=== PATIENT | male | born 1945 | race Caucasian/White ===

== ENCOUNTER 2021-03-09 13:16 | Emergency (ER) | payer OTHER, MEDICARE ==
[~2021-03-09] VITALS: Ht 167.6 cm; Wt 79.5 kg
[~2021-03-09 13:16] MED LIST: ALBU8.5H8 IH; ALLO100T25 PO; AMLO10TA13 PO; ASPI-611 PO; ATOR-2 PO; CALC667T6 PO; CARV6.253 PO; CHOL100025 PO; CLON0.2T PO; DILT240C94 PO; FURO80TA3 PO; IPRA3AMP9 NEB; LIDO700A32 TOP; PATI8.4P PO; TIOT4MIS3 PEG; TRAZ-256 PO; VIT1TABL50 PO; [UNRECOGNIZED DRUG - CODE] PO
[2021-03-09 14:26] LABS: BASOPHILS # (AUTO) 0.1 X10'3 (0-0.2); BASOPHILS % (AUTO) 0.5 % (0-1); EOSINOPHILS # (AUTO) 0.1 X10'3 (0-0.9); EOSINOPHILS % (AUTO) 0.6 % (0-6); HEMATOCRIT 36.4 % (42.0-52.0); HEMOGLOBIN 11.8 g/dl (14.0-17.9); LYMPHOCYTES # (AUTO) 0.8 X10'3 (1.1-4.8); LYMPHOCYTES % (AUTO) 4.9 % (21-51); MEAN CORPUSCULAR HEMOGLOBIN 31.1 PG (27.0-31.0); MEAN CORPUSCULAR HGB CONC 32.4 g/dL (33.0-36.5); MEAN CORPUSCULAR VOLUME 96.1 FL (78-98); MEAN PLATELET VOLUME 8.2 FL (7.4-10.4); MONOCYTES # (AUTO) 1.8 X10'3 (0-0.9); MONOCYTES % (AUTO) 11.2 % (2-12); NEUTROPHILS # (AUTO) 13.1 X10'3 (1.8-7.7); NEUTROPHILS % (AUTO) 82.8 % (42-75); PLATELET COUNT 210 X10'3 (140-440); RED BLOOD COUNT 3.79 X10'6 (4.70-6.10); RED CELL DISTRIBUTION WIDTH 16.2 % (11.5-14.5); WHITE BLOOD COUNT 15.9 X10'3 (4.5-11.0)
[2021-03-09 14:36] LABS: PARTIAL THROMBOPLASTIN TIME 24 SECONDS (22-32)
[2021-03-09 14:43] LABS: ETHANOL < 0.010 GM/DL (0.0-0.010); MAGNESIUM 1.9 MG/DL (1.5-2.4)
[2021-03-09] MEDS ORDERED: HYDROcodone/acetaminophen 5mg/325mg tablet PO ONE (14:50)
[2021-03-09] MEDS ORDERED: ondansetron/PF 4mg/2ml inj IV ONE (16:20)
[2021-03-09] MEDS ORDERED: morphine 4 MG/ML inj SYRINge IV ONE (16:20)
--- NOTE | 2021-03-09 17:31 | NUR ---
called report to [facility] spoke to JYOTHI Rosales
[2021-03-09 17:32] VITALS: BP 200/96
== END 2021-03-09 22:26 | disposition short-term general hospital (02) ==
LOC: ER 13:17
DX: S22.21XA Fracture of manubrium, initial encounter for closed fracture (principal); S22.080A Wedge compression fracture of T11-T12 vertebra, initial encounter for closed fracture; R55 Syncope and collapse; M54.5 Low back pain; I50.9 Heart failure, unspecified; J44.9 Chronic obstructive pulmonary disease, unspecified; N18.9 Chronic kidney disease, unspecified; F17.200 Nicotine dependence, unspecified, uncomplicated; Z72.89 Other problems related to lifestyle; Z79.2 Long term (current) use of antibiotics; Z79.82 Long term (current) use of aspirin; Z79.899 Other long term (current) drug therapy; V87.7XXA Person injured in collision between other specified motor vehicles (traffic), initial encounter; Y93.89 Activity, other specified; Y92.89 Other specified places as the place of occurrence of the external cause; Y99.8 Other external cause status
CPT/HCPCS: 36415; 70450; 71045; 71250; 72100; 72125; 72170; 74176; 80320; 82948; 83735; 83880; 84484; 85025; 85610; 85730; 93005; 96374; 96375; 99285; J2270; J2405

== ENCOUNTER 2021-06-29 08:07 | Day surgery (SDC) | payer MEDICARE, OTHER ==
[~2021-06-29] VITALS: Ht 177.8 cm; Wt 77.8 kg
[~2021-06-29 08:07] MED LIST changes: +ALBU8.5H17 IH; -ALBU8.5H8 IH; -AMLO10TA13 PO; -IPRA3AMP9 NEB; +NIFE30TA95 PO; -[UNRECOGNIZED DRUG - CODE] PO
[2021-06-29] MEDS ORDERED: normal saline 1000ml 1,000 ML IV PRN (08:40)
[2021-06-29 08:49] VITALS: BP 160/70
[2021-06-29 09:21] LABS: BASOPHILS # (AUTO) 0.1 X10'3 (0-0.2); BASOPHILS % (AUTO) 1.3 % (0-1); EOSINOPHILS # (AUTO) 0.3 X10'3 (0-0.9); EOSINOPHILS % (AUTO) 3.7 % (0-6); HEMATOCRIT 29.6 % (42.0-52.0); HEMOGLOBIN 9.6 g/dl (14.0-17.9); LYMPHOCYTES # (AUTO) 1.2 X10'3 (1.1-4.8); LYMPHOCYTES % (AUTO) 16.5 % (21-51); MEAN CORPUSCULAR HEMOGLOBIN 30.8 PG (27.0-31.0); MEAN CORPUSCULAR HGB CONC 32.3 g/dL (33.0-36.5); MEAN CORPUSCULAR VOLUME 95.4 FL (78-98); MEAN PLATELET VOLUME 7.7 FL (7.4-10.4); MONOCYTES # (AUTO) 0.9 X10'3 (0-0.9); MONOCYTES % (AUTO) 12.6 % (2-12); NEUTROPHILS # (AUTO) 4.7 X10'3 (1.8-7.7); NEUTROPHILS % (AUTO) 65.9 % (42-75); PLATELET COUNT 232 X10'3 (140-440); RED BLOOD COUNT 3.11 X10'6 (4.70-6.10); RED CELL DISTRIBUTION WIDTH 18.1 % (11.5-14.5); WHITE BLOOD COUNT 7.2 X10'3 (4.5-11.0)
[2021-06-29 09:26] LABS: ALBUMIN 2.4 G/DL (3.4-5.0); ANION GAP 8 (8-16); BLOOD UREA NITROGEN 18 MG/DL (7-18); BUN/CREATININE RATIO 3.2 (5.4-32.0); CALCIUM 8.8 MG/DL (8.5-10.1); CHLORIDE 99 MMOL/L (99-107); GLUCOSE 85 MG/DL (70-104); POTASSIUM 4.8 MMOL/L (3.5-5.1); SODIUM 139 MMOL/L (135-145); TOTAL CARBON DIOXIDE 32.1 MMOL/L (24-32); eGFR 10 ML/MIN
[2021-06-29] MEDS ORDERED: LIDOcaine 1%/PF 5ML 10 MG/ML VIAL ONE (10:52)
[2021-06-29] MEDS ORDERED: iohexol 300mg/ml 100ml inj. ONE (10:52)
[2021-06-29] MEDS ORDERED: midazolam 1 mg/ML 2ml injection ONE ×2 (11:06→11:22)
[2021-06-29] MEDS ORDERED: heparin 1,000 UNITS/NS 500ml 500 ML ONE (11:08)
[2021-06-29] MEDS ORDERED: fentaNYL/PF 50MCG/1 ML 2ML syringe ONE (11:09)
[2021-06-29 12:15] VITALS: BP 143/65
[2021-06-29 12:45] VITALS: BP 120/70
== END 2021-06-29 13:20 | disposition home or self-care (01) ==
LOC: SSTAY O 08:07
PROVIDERS: ATTEND Radiology Diagnostic Radiology
DX: T82.858A Stenosis of other vascular prosthetic devices, implants and grafts, initial encounter (principal); I12.0 Hypertensive chronic kidney disease with stage 5 chronic kidney disease or end stage renal disease; N18.6 End stage renal disease; M10.9 Gout, unspecified; Z79.899 Other long term (current) drug therapy; Z79.82 Long term (current) use of aspirin; Z79.01 Long term (current) use of anticoagulants; Y83.2 Surgical operation with anastomosis, bypass or graft as the cause of abnormal reaction of the patient, or of later complication, without mention of misadventure at the time of the procedure; Y92.89 Other specified places as the place of occurrence of the external cause
CPT/HCPCS: 36415; 36901; 36907; 80048; 85025; 85610; 99152; 99153; C1725; C1769; C1894; J1644; J2250; J3010; Q9967

== ENCOUNTER 2022-10-24 06:47 | Day surgery (SDC) | payer OTHER ==
[~2022-10-24] VITALS: Ht 177.8 cm; Wt 64.6 kg
[~2022-10-24 06:47] MED LIST changes: -CHOL100025 PO; -LIDO700A32 TOP; -NIFE30TA95 PO; -TIOT4MIS3 PEG; -TRAZ-256 PO
[2022-10-24] MEDS ORDERED: normal saline 1000ml 1,000 ML IV PRN (07:15)
[2022-10-24] MEDS ORDERED: FLUT1BLS13 (07:40)
[2022-10-24] MEDS ORDERED: SODI650T29 PO (07:40)
[2022-10-24] MEDS ORDERED: HYDR100T27 PO (07:40)
[2022-10-24] MEDS ORDERED: MUCINEX (07:40)
[2022-10-24] MEDS ORDERED: CEPH-194 PO (07:40)
[2022-10-24] MEDS ORDERED: TIOT4MIS3 (07:40)
[2022-10-24 08:04] LABS: BASOPHILS # (AUTO) 0.1 X10'3 (0-0.2); BASOPHILS % (AUTO) 1.1 % (0-1); EOSINOPHILS # (AUTO) 0.1 X10'3 (0-0.9); EOSINOPHILS % (AUTO) 2.2 % (0-6); HEMOGLOBIN 8.9 g/dl (14.0-17.9); LYMPHOCYTES # (AUTO) 0.8 X10'3 (1.1-4.8); LYMPHOCYTES % (AUTO) 13.8 % (21-51); MEAN CORPUSCULAR HEMOGLOBIN 29.7 PG (27.0-31.0); MEAN CORPUSCULAR HGB CONC 31.9 g/dL (33.0-36.5); MEAN PLATELET VOLUME 7.3 FL (7.4-10.4); MONOCYTES % (AUTO) 17.4 % (2-12); NEUTROPHILS # (AUTO) 3.8 X10'3 (1.8-7.7); NEUTROPHILS % (AUTO) 65.5 % (42-75); PLATELET COUNT 203 X10'3 (140-440); RED BLOOD COUNT 3.02 X10'6 (4.70-6.10); RED CELL DISTRIBUTION WIDTH 17.4 % (11.5-14.5); WHITE BLOOD COUNT 5.8 X10'3 (4.5-11.0)
[2022-10-24 08:09] VITALS: BP 122/61
[2022-10-24 08:27] LABS: ANISOCYTOSIS 1+; ELLIPTOCYTES 1+; PLATELET ESTIMATE NORMAL; TOTAL CELLS COUNTED 100
[2022-10-24 08:28] LABS: TEAR DROP CELLS FEW
[2022-10-24] MEDS ORDERED: FENTANYL CITRATE/PF 50 MCG/1 ML VIAL ONE ×2 (08:34→09:07)
[2022-10-24] MEDS ORDERED: LIDOcaine 1% 30ml preserv. free vial ONE (08:34)
[2022-10-24] MEDS ORDERED: midazolam 1 mg/ML 2ml injection ONE (08:34)
[2022-10-24] MEDS ORDERED: iohexol 300mg/ml 100ml inj. ONE ×2 (08:35→09:15)
[2022-10-24] MEDS ORDERED: heparin 1,000 UNITS/NS 500ml 500 ML ONE (08:35)
[2022-10-24] MEDS ORDERED: diphenhydrAMINE 50 mg/ml inj ONE (08:53)
[2022-10-24 09:08] LABS: CHLORIDE 102 MMOL/L (99-107); POTASSIUM 3.6 MMOL/L (3.5-5.1); SODIUM 140 MMOL/L (135-145)
[2022-10-24 09:17] LABS: ALBUMIN 2.6 G/DL (3.4-5.0); ANION GAP 10 (8-16); BLOOD UREA NITROGEN 18 MG/DL (7-18); BUN/CREATININE RATIO 3.5 (5.4-32.0); CALCIUM 8.5 MG/DL (8.5-10.1); CREATININE 5.13 MG/DL (0.60-1.10); GLUCOSE 103 MG/DL (70-104); TOTAL CARBON DIOXIDE 27.9 MMOL/L (24-32); eGFR 11 ML/MIN
[2022-10-24 09:51] VITALS: BP 140/63
[2022-10-24 10:06] VITALS: BP 131/60
[2022-10-24 10:21] VITALS: BP 128/61
[2022-10-24 10:36] VITALS: BP 123/57
== END 2022-10-24 11:00 | disposition home or self-care (01) ==
LOC: SSTAY O 06:47
PROVIDERS: ATTEND Radiology Vascular & Interventional Radiology
DX: T82.858A Stenosis of other vascular prosthetic devices, implants and grafts, initial encounter (principal); I12.0 Hypertensive chronic kidney disease with stage 5 chronic kidney disease or end stage renal disease; N18.6 End stage renal disease; E78.5 Hyperlipidemia, unspecified; J44.9 Chronic obstructive pulmonary disease, unspecified; Z79.899 Other long term (current) drug therapy; Y83.2 Surgical operation with anastomosis, bypass or graft as the cause of abnormal reaction of the patient, or of later complication, without mention of misadventure at the time of the procedure; Y92.89 Other specified places as the place of occurrence of the external cause
CPT/HCPCS: 36901; 36907; 80048; 85025; 85610; 99152; 99153; C1725; C1769; C1894; J1200; J1644; J2250; J3010; J3490; J7030; Q9967; 36902; 85007; A4620

== ENCOUNTER 2023-08-11 18:11 | Emergency (ER) | payer OTHER, MEDICARE ==
[~2023-08-11] VITALS: Ht 177.8 cm; Wt 46.0 kg
[~2023-08-11 18:11] MED LIST changes: -ASPI-611 PO; +ASPI81TA52 PO; +ATR0.5NEB NEB; -CALC667T6 PO; -CLON0.2T PO; +CYCL5TAB PO; +DICL100G59 TOP; -DILT240C94 PO; +FLUT1BLS13 IH; +FOLI0.8T41 PO; +HYDR-3686 PO; +HYDR-3965 PO; +HYDR100T27 PO; +LOSA100T58 PO; +MEGE400O15 PO; -PATI8.4P PO; +PHO667C PO; +SODI10PO PO; +SODI650T29 PO; +TIOT4MIS2 IH; +TRAZ-256 PO; -VIT1TABL50 PO; +ZINC50CA2 PO
[2023-08-11] MEDS ORDERED: HYDROmorphone 1 mg/ml syringe IM ONE (19:40)
[2023-08-11 20:02] VITALS: BP 177/80; PULSE 97; RESP 18; TEMP 98.3; O2SAT 97
== END 2023-08-11 20:06 | disposition home or self-care (01) ==
LOC: ER 18:11
DX: M54.9 Dorsalgia, unspecified (principal); G89.29 Other chronic pain; N18.6 End stage renal disease; J44.9 Chronic obstructive pulmonary disease, unspecified; I50.9 Heart failure, unspecified; I13.0 Hypertensive heart and chronic kidney disease with heart failure and stage 1 through stage 4 chronic kidney disease, or unspecified chronic kidney disease; E11.22 Type 2 diabetes mellitus with diabetic chronic kidney disease; N18.9 Chronic kidney disease, unspecified; Z99.2 Dependence on renal dialysis; Z99.81 Dependence on supplemental oxygen; Z79.899 Other long term (current) drug therapy; Z79.82 Long term (current) use of aspirin
CPT/HCPCS: 96372; 99283; J1170

== ENCOUNTER 2023-08-12 16:02 | Emergency (ER) | payer OTHER, MEDICARE ==
[~2023-08-12] VITALS: Ht 177.8 cm; Wt 55.2 kg
[2023-08-12 18:52] VITALS: BP 183/101; PULSE 90; TEMP 98; O2SAT 100
[2023-08-12] MEDS ORDERED: HYDROcodone/acetaminophen 10/325mg tab PO ONE (20:00)
[2023-08-12] MEDS ORDERED: OXYcodone (OXYCONTIN) Ext Release 15 MG TAB.SR.12H PO SCH (20:00)
[2023-08-12 20:12] VITALS: RESP 16
[2023-08-14] MEDS ORDERED: ALBU2.5V13 NEB (16:50)
[2023-08-14] MEDS ORDERED: DILT240C88 PO (16:52)
[2023-08-14] MEDS ORDERED: DIPH25CA83 PO (16:55)
[2023-08-14] MEDS ORDERED: GUAI-652 PO (16:56)
[2023-08-14] MEDS ORDERED: COLC0.6T72 PO (16:57)
== END 2023-08-12 20:15 | disposition home or self-care (01) ==
LOC: ER 16:03
DX: M54.9 Dorsalgia, unspecified (principal); G89.29 Other chronic pain; I13.0 Hypertensive heart and chronic kidney disease with heart failure and stage 1 through stage 4 chronic kidney disease, or unspecified chronic kidney disease; I50.9 Heart failure, unspecified; N18.9 Chronic kidney disease, unspecified; J44.9 Chronic obstructive pulmonary disease, unspecified; Z79.82 Long term (current) use of aspirin; Z79.899 Other long term (current) drug therapy
CPT/HCPCS: 99283

== ENCOUNTER 2023-09-23 01:22 | Emergency (ER) | payer OTHER, MEDICARE ==
[~2023-09-23] VITALS: Ht 177.8 cm; Wt 150.0 kg
[~2023-09-23 01:22] MED LIST changes: +ALBU2.5V13 NEB; +COLC0.6T72 PO; -CYCL5TAB PO; -DICL100G59 TOP; +DILT240C88 PO; +DIPH25CA83 PO; +GUAI-652 PO; -HYDR-3686 PO; -HYDR-3965 PO
[2023-09-23 01:56] VITALS: TEMP 96.8
[2023-09-23 03:28] VITALS: BP 125/71; PULSE 69; RESP 13; O2SAT 95
== END 2023-09-23 05:16 | disposition home or self-care (01) ==
LOC: ER 01:23
DX: T82.838A Hemorrhage due to vascular prosthetic devices, implants and grafts, initial encounter (principal)
CPT/HCPCS: 99281; 99283; A6449